=== PATIENT | male | born 1975 | race Caucasian/White ===

== ENCOUNTER 2017-02-04 17:43 | Emergency (ER) | payer OTHER ==
[2017-02-04 18:00] VITALS: BP 130/93
[2017-02-04] MEDS ORDERED: Bacitracin Oint 1 GM U/D Packet TOP ONE (18:08)
--- NOTE | 2017-02-04 18:46 | EDM.PDOC ---
ED HPI GENERAL MEDICAL PROBLEM - General Chief Complaint: Laceration Stated Complaint: HAND LACERATION Time Seen by Provider: 02/04/17 18:06 Source of Information: Reports: Patient History Limitations: Reports: No Limitations - History of Present Illness INITIAL COMMENTS - FREE TEXT/NARRATIVE: History of present illness: [41-year-old male presents with a small laceration to the right hand at the base of the right thumb. He is right-handed. This was more of a stab wound with clean knife. It's about 1 cm long. He did have arterial bleeding initially when this occurred. His job doesn't require fine motor skills. He complains of numbness of the pad of his right thumb but functionally intact.] Review of systems: As per history of present illness and below otherwise all systems reviewed and negative. Past medical history: As per history of present illness and as reviewed below otherwise noncontributory. Surgical history: As per history of present illness and as reviewed below otherwise noncontributory. Social history: No reported history of drug or alcohol abuse. Family history: As per history of present illness and as reviewed below otherwise noncontributory. Physical exam: HEENT: Atraumatic, normocephalic, Lungs: Clear to auscultation Heart: S1S2, regular Extremities: Atraumatic, negative for cords or calf pain. He does have decreased sensation to light touch of the pad of the right hand but functionally apposition is fully intact and strong. Neuro: Awake, alert, oriented. Buttock: He has a insulin pump and he removed it from his right buttock completed on his right thigh and he's having some discomfort there I looked at it and there is some mild induration of the site but no warmth and no significant redness or erythema. Diagnostics: [] Therapeutics: [The area was prepped and draped in usual fashion 1% lidocaine was used for local inspiration without epinephrine The wound was closed with 2 [id number] sutures using 5-0 Ethilon to help stop the arterial bleeding. Patient tolerated the procedure well ] Impression: [1 cm laceration to right thumb with involvement of the sensory nerve to the pad of the right thumb. Induration of right buttock at the old insulin pump injection site.] Plan: [He is from [facility]: Returning there on Thursday. We'll provide him names and phone numbers of hand surgeons that he could follow-up with their. I did speak with Dr. Juan Pablo Vargas and a thinks it's unlikely that can be repaired. I did give him a prescription for Keflex 500 mg 4 times a day for 10 days for him to hang onto. He is to watch this site on the right buttock and it seems to be worsening his first pain or erythema that he can fill that at this point I think it would be okay to observe it for a couple more days and I think it'll just go away.] Definitive disposition and diagnosis as appropriate pending reevaluation and review of above. Right Hand Pain Score (Numeric/FACES): 2 - Related Data Allergies Allergy/AdvReac Type Severity Reaction Status Date / Time ibuprofen [From Advil] Allergy Other Verified 02/04/17 18:03 Home Meds: Home Meds Insulin Lispro [HumaLOG] 1 unit SUBCUT ASDIRECTED 02/04/17 [History] Levothyroxine 1 tab PO DAILY 02/04/17 [History] Past Medical History Musculoskeletal History: Reports: Fracture Endocrine/Metabolic History: Reports: Diabetes, Type I, Hypothyroidism - Past Surgical History Musculoskeletal Surgical History: Reports: Other (See Below) Other Musculoskeletal Surgeries/Procedures:: ankle fracture surgery Social & Family History - Tobacco Use Smoking Status *Q: Never Smoker - Recreational Drug Use Recreational Drug Use: No ED ROS GENERAL - Review of Systems Review Of Systems: ROS reveals no pertinent complaints other than HPI. ED EXAM, SKIN/RASH Exam: See Below Course - Vital Signs Last Recorded V/S: Last Vital Signs Temp 36.9 C 02/04/17 18:01 Pulse 90 02/04/17 18:01 Resp 16 02/04/17 18:01 BP 130/93 H 02/04/17 18:01 Pulse Ox 97 02/04/17 18:01 - Orders/Labs/Meds Meds: Medications Discontinued Medications Generic Name Dose Route Start Last Admin Trade Name Brisa PRN Reason Stop Dose Admin Bacitracin 1 dose 02/04/17 18:08 02/04/17 18:17 Bacitracin Oint 1 Gm TOP 02/04/17 18:09 1 dose ONETIME ONE Administration Lidocaine HCl 5 ml 02/04/17 18:08 02/04/17 18:17 Xylocaine-Mpf 1% INJECT 08/02/17 18:09 5 ml ONETIME ONE Administration Departure - Departure Time of Disposition: 18:46 Disposition: Home, Self-Care 01 Condition: Good Clinical Impression: Hand laceration Qualifiers: Encounter type: initial encounter Foreign body presence: without foreign body Laterality: right Qualified Code(s): S61.411A - Laceration without foreign body of right hand, initial encounter - Discharge Information Forms: ED Department Discharge Additional Instructions: When you are discharge I'm asking staff to provide you names and numbers of the hand surgeons you can follow-up in [place]. I spoke with her orthopedic surgeon and he thinks it's unlikely that they will be able to do anything but you could make an appointment and follow-up with them and see what they think can get a sense of what your prognosis is as far as that pad of your thumb regaining its sensation. I also providing a prescription for an antibiotic that she can fill if the site on her right buttock seems to be getting worse as far as pain or swelling or erythema. Don't hesitate to fill it if you sense at all that it seems to be getting worse but I think it's okay to wait a day or 2 to see if it's just go away on its own.
== END 2017-02-04 19:02 | disposition home or self-care (01) ==
LOC: JP.ED 17:43
DX: S61.011A Laceration without foreign body of right thumb without damage to nail, initial encounter (principal); E10.9 Type 1 diabetes mellitus without complications; E03.9 Hypothyroidism, unspecified; Z88.6 Allergy status to analgesic agent; Z98.890 Other specified postprocedural states; W26.0XXA Contact with knife, initial encounter
CPT/HCPCS: 12001; 99283-25